=== PATIENT | female | born 1985 | race Caucasian/White ===

== ENCOUNTER 2021-03-21 18:38 | Emergency (ER) | payer SELFPAY ==
--- OUTSIDE RECORDS SUMMARY | 2021-03-21 18:40 | XMS REPORT | Continuity of Care Document ---
:1985 Author Organization [facility] t Address [address] [place] [address] Dr. Mcpherson. [address] [place] [address] Care Team Providers Name Role Phone Unavailable Unavailable Unavailable Payers Payer Name Policy Type Policy Number Effective Date Expiration Date S ource Problems This patient has no known problems. Allergies, Adverse Reactions, Alerts Allergy Allergy Status Severity Reaction(s) Onset Inactive Treating Comm ents Source Name Type Date Date Clinician No Known DA Active U KAYKAY Allerggloria 06-18 [facility] 00:00: e 00 [facility] Medications This patient has no known medications. Procedures This patient has no known procedures. Results This patient has no known results.
[2021-03-21] MEDS ORDERED: NA CHLORIDE 0.9% 2,000 ML ONE (19:19)
[2021-03-21 19:45] LABS: Absolute Lymphocytes (CBC) 1.3 K/uL (0.7-4.9); Basophils % 0.7 % (0-1.3); Hematocrit 38.1 % (36.0-45.0); Lymphocytes % 25.8 % (15.3-44.8); MPV 7.3 fL (7.6-11.3); RBC Red Blood Cell Count 4.17 M/uL (3.86-4.86)
[2021-03-21 19:49] LABS: Protime INR 0.92
[2021-03-21 20:00] LABS: ALT/SGPT 25 U/L (12-78); AST/SGOT 17 U/L (15-37); Alkaline Phosphatase 60 U/L (45-117); BUN Blood Urea Nitrogen 16 mg/dL (7-18); Bicarbonate 28 mmol/L (21-32); Bilirubin Direct 0.1 mg/dL (0-0.2); Bilirubin Total 0.6 mg/dL (0.2-1.0); Glucose Level 76 mg/dL (74-106); Lipase 119 U/L (73-393); Potassium 3.9 mmol/L (3.5-5.1); Protein, Total 7.4 g/dL (6.4-8.2); Sodium Level 140 mmol/L (136-145)
--- NOTE | 2021-03-21 20:10 | ER ---
Nurse's Notes [facility] Name: Filippo Brown Age: 35 yrs Sex: Female : 1985 Arrival Date: 03/21/2021 Time: 18:42 Bed 18 Private MD: Diagnosis: Abdominal tenderness;Heat exhaustion, unspecified Presentation: 03/21 18:47 Chief complaint: EMS states: Pt walked from [place] to [place] yesterday. Pt states vg1 dehydration and ABD pain; has hx of pancreatitis. Coronavirus screen: Client denies travel out of the [place] in the last 14 days. Ebola Screen: Patient negative for fever greater than or equal to 101.5 degrees Fahrenheit, and additional compatible Ebola Virus Disease symptoms. Initial Sepsis Screen: Does the patient meet any 2 criteria? No. Patient's initial sepsis screen is negative. Does the patient have a suspected source of infection? No. Patient's initial sepsis screen is negative. Risk Assessment: Do you want to hurt yourself or someone else? Patient reports no desire to harm self or others. Onset of symptoms was March 20, 2021. 18:47 Method Of Arrival: EMS: [facility] vg1 18:47 Acuity: THERON 3 vg1 Triage Assessment: 18:49 General: Appears in no apparent distress. uncomfortable, Behavior is calm, cooperative. vg1 Pain: Denies pain. 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 - Social history:: Smoking status: Patient denies any tobacco usage or history of. Screenin:47 Abuse screen: Denies threats or abuse. Denies injuries from another. Nutritional lp1 screening: No deficits noted. Tuberculosis screening: No symptoms or risk factors identified. Fall Risk None identified. Assessment: 19:15 General: Appears in no apparent distress. Behavior is calm, cooperative. Pain: Denies lp1 pain. Neuro: Level of Consciousness is awake, alert, obeys commands, Oriented to person, place, time, situation, Gait is steady, Speech is normal, Pupils are PERRLA, Intact Reports dizziness, after walking outside all day yesterday. Cardiovascular: Patient's skin is warm and dry. Respiratory: Airway is patent Respiratory effort is even, unlabored. GI: No signs and/or symptoms were reported involving the gastrointestinal system. : No signs and/or symptoms were reported regarding the genitourinary system. EENT: No signs and/or symptoms were reported regarding the EENT system. Derm: Skin is intact, Skin is dry, Skin is normal, appears slight redness to cheeks, patient reports from sun exposure. Musculoskeletal: No deficits noted. 20:20 Reassessment: Patient appears in no apparent distress at this time. Patient resting, lp1 eyes closed, respirations even, unlabored. Vital Signs: 18:47 BP 122 / 80; Pulse 95; Resp 18; Temp 98.8; Pulse Ox 100% ; Weight 58.97 kg; Pain 0/10; vg1 20:00 BP 102 / 67; Pulse 81; Resp 16; Pulse Ox 98% on R/A; lp1 21:00 BP 102 / 72; Pulse 86; Resp 16; Pulse Ox 99% on R/A; lp1 ED Course: 18:42 Patient arrived in ED. tr6 18:44 Satya Branham MD is Attending Physician. enedina 18:48 Triage completed. vg1 18:50 Arm band placed on. vg1 18:50 Patient has correct armband on for positive identification. Bed in low position. Call vg1 light in reach. Side rails up X 1. 19:32 Sherri Garcia RN is Primary Nurse. lp1 20:09 Shon Lyman MD is Referral Physician. enedina 20:57 No provider procedures requiring assistance completed. lp1 21:30 IV discontinued, No redness/swelling at site. Pressure dressing applied. lp1 Administered Medications: 19:20 Drug: NS 0.9% 1000 ml Route: IV; Rate: 1 bolus; Site: left forearm; lp1 20:20 Follow up: IV Status: Completed infusion; IV Intake: 1000ml lp1 20:20 Drug: NS 0.9% 1000 ml Route: IV; Rate: 1 bolus; Site: left forearm; lp1 21:29 Follow up: IV Status: Completed infusion; IV Intake: 1000ml lp1 Intake: 20:20 IV: 1000ml; Total: 1000ml. lp1 21:29 IV: 1000ml; Total: 2000ml. lp1 Outcome: 20:09 Discharge ordered by . enedina 21:30 Discharged to home ambulatory. lp1 21:30 Condition: good 21:30 Discharge instructions given to patient, Instructed on discharge instructions, follow up and referral plans. medication usage, Demonstrated understanding of instructions, follow-up care, medications, Prescriptions given X 2. 21:39 Patient left the ED. lp1 Signatures: Satya Branham MD MD cha Pena, Laura, RN RN lp1 Daniela Hutchinson, RN RN 1 Gloria Richards RN RN tr6
--- NOTE | 2021-03-21 20:10 | EDPHYS ---
Physician Documentation [facility] Name: Filippo Brown Age: 35 yrs Sex: Female : 1985 Arrival Date: 03/21/2021 Time: 18:42 Bed 18 Private MD: ED Physician Satya Branham HPI: 03/21 18:59 This 35 yrs old Female presents to ER via EMS with complaints of dehydrated [place]. 18:59 The patient presents with abdominal pain in the upper abdomen. Onset: The enedina symptoms/episode began/occurred just prior to arrival. The symptoms do not radiate. Associated signs and symptoms: none. 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 - Social history:: Smoking status: Patient denies any tobacco usage or history of. ROS: 19:06 Constitutional: Negative for fever, chills, and weight loss, Eyes: Negative for injury, enedina pain, redness, and discharge, ENT: Negative for injury, pain, and discharge, Neck: Negative for injury, pain, and swelling, Cardiovascular: Negative for chest pain, palpitations, and edema, Respiratory: Negative for shortness of breath, cough, wheezing, and pleuritic chest pain, Back: Negative for injury and pain, : Negative for injury, bleeding, discharge, and swelling, MS/Extremity: Negative for injury and deformity, Skin: Negative for injury, rash, and discoloration, Neuro: Negative for headache, weakness, numbness, tingling, and seizure, Psych: Negative for depression, anxiety, suicide ideation, homicidal ideation, and hallucinations, Allergy/Immunology: Negative for hives, rash, and allergies, Endocrine: Negative for neck swelling, polydipsia, polyuria, polyphagia, and marked weight changes, Hematologic/Lymphatic: Negative for swollen nodes, abnormal bleeding, and unusual bruising. 19:06 Abdomen/GI: Positive for abdominal pain, of the epigastric area, right upper quadrant and left upper quadrant. Exam: 19:06 Constitutional: This is a well developed, well nourished patient who is awake, alert, enedina and in no acute distress. Head/Face: Normocephalic, atraumatic. Eyes: Pupils equal round and reactive to light, extra-ocular motions intact. Lids and lashes normal. Conjunctiva and sclera are non-icteric and not injected. Cornea within normal limits. Periorbital areas with no swelling, redness, or edema. ENT: Nares patent. No nasal discharge, no septal abnormalities noted. Tympanic membranes are normal and external auditory canals are clear. Oropharynx with no redness, swelling, or masses, exudates, or evidence of obstruction, uvula midline. Mucous membranes moist. Neck: Trachea midline, no thyromegaly or masses palpated, and no cervical lymphadenopathy. Supple, full range of motion without nuchal rigidity, or vertebral point tenderness. No Meningismus. Chest/axilla: Normal chest wall appearance and motion. Nontender with no deformity. No lesions are appreciated. Cardiovascular: Regular rate and rhythm with a normal S1 and S2. No gallops, murmurs, or rubs. Normal PMI, no JVD. No pulse deficits. Respiratory: Lungs have equal breath sounds bilaterally, clear to auscultation and percussion. No rales, rhonchi or wheezes noted. No increased work of breathing, no retractions or nasal flaring. Abdomen/GI: Soft, non-tender, with normal bowel sounds. No distension or tympany. No guarding or rebound. No evidence of tenderness throughout. Back: No spinal tenderness. No costovertebral tenderness. Full range of motion. Skin: Warm, dry with normal turgor. Normal color with no rashes, no lesions, and no evidence of cellulitis. MS/ Extremity: Pulses equal, no cyanosis. Neurovascular intact. Full, normal range of motion. Neuro: Awake and alert, GCS 15, oriented to person, place, time, and situation. Cranial nerves II-XII grossly intact. Motor strength 5/5 in all extremities. Sensory grossly intact. Cerebellar exam normal. Normal gait. Psych: Awake, alert, with orientation to person, place and time. Behavior, mood, and affect are within normal limits. 19:06 Abdomen/GI: Inspection: abdomen appears normal, Bowel sounds: normal, active, all quadrants, Palpation: mild abdominal tenderness, in all quadrants, Liver: no appreciated palpable abnormalities, Hernia: not appreciated. Vital Signs: 18:47 BP 122 / 80; Pulse 95; Resp 18; Temp 98.8; Pulse Ox 100% ; Weight 58.97 kg; Pain 0/10; vg1 20:00 BP 102 / 67; Pulse 81; Resp 16; Pulse Ox 98% on R/A; lp1 21:00 BP 102 / 72; Pulse 86; Resp 16; Pulse Ox 99% on R/A; lp1 MDM: 18:44 Patient medically screened. [facility] 19:07 Differential diagnosis: cholecystitis, Cholelithiasis, diverticulitis, gastritis, enedina Hepatitis, Irritable bowel syndrome, Menorrhagia, myocardia ischemia or infarction, non-specific abd pain, Peptic Ulcer Disease, Pelvic Inflammatory Disease, urinary tract infection. Data reviewed: vital signs, nurses notes, lab test result(s), EKG. Data interpreted: end packer: rate is 95 beats/min, rhythm is regular, Pulse oximetry: on room air is 10 %. Test interpretation: by ED physician or midlevel provider: ECG. Counseling: I had a detailed discussion with the patient and/or guardian regarding: the historical points, exam findings, and any diagnostic results supporting the discharge/admit diagnosis, lab results, radiology results. 06 18:45 Order name: Acetaminophen [facility] 03/21 18:45 Order name: Basic Metabolic Panel [facility] 03/21 18:45 Order name: CBC with Diff [facility] 03/21 18:45 Order name: ETOH Level [facility] 03/21 18:45 Order name: Hepatic Function [facility] 03/21 18:45 Order name: PT-INR; Complete Time: 19:[address] [facility] 03/21 18:45 Order name: Ptt, Activated; Complete Time: 19:[address] [facility] 03/21 18:45 Order name: Salicylate; Complete Time: 19:[address] [facility] 03/21 18:45 Order name: Acetaminophen Level; Complete Time: 20:08 [facility] 03/21 18:45 Order name: Basic Metabolic Panel; Complete Time: 20:08 [facility] 03/21 18:45 Order name: CBC with Automated Diff; Complete Time: 19:54 [facility] 03/21 18:45 Order name: Alcohol Serum/Plasma; Complete Time: 19:54 [facility] 03/21 18:45 Order name: Liver (Hepatic) Function; Complete Time: 20:08 [facility] 03/21 18:45 Order name: EKG; Complete Time: 18:[address] [facility] 03/21 18:45 Order name: EKG - Nurse/Tech; Complete Time: 20:[address] [facility] 03/21 18:45 Order name: IV Saline Lock; Complete Time: 19:[address] [facility] 03/21 18:45 Order name: Labs collected and sent; Complete Time: 19:[address] [facility] 03/21 18:45 Order name: Suicide Screening ([place]); Complete Time: 20:[address] [facility] 03/21 18:58 Order name: Lipase [facility] 03/21 19:26 Order name: Lipase; Complete Time: 20:08 EDMS Administered Medications: 19:20 Drug: NS 0.9% 1000 ml Route: IV; Rate: 1 bolus; Site: left forearm; lp1 20:20 Follow up: IV Status: Completed infusion; IV Intake: 1000ml lp1 20:20 Drug: NS 0.9% 1000 ml Route: IV; Rate: 1 bolus; Site: left forearm; lp1 21:29 Follow up: IV Status: Completed infusion; IV Intake: 1000ml lp1 Disposition: 03/21/21 20:09 Discharged to Home. Impression: Abdominal tenderness, Heat exhaustion, unspecified. - Condition is Stable. - Discharge Instructions: Abdominal Pain, Adult, Nausea and Vomiting, Adult, Abdominal Pain, Adult, [id number]. - Prescriptions for Pepcid 20 mg Oral Tablet - take 1 tablet by ORAL route every 12 hours for 10 days; 20 tablet. Zofran 4 mg Oral Tablet - take 1 tablet by ORAL route every 12 hours As needed; 20 tablet. - Medication Reconciliation Form, Thank You Letter, Antibiotic Education, Prescription Opioid Use form. - Follow up: Private Physician; When: 2 - 3 days; Reason: Recheck today's complaints, Continuance of care, Re-evaluation by your physician. Follow up: Shon Lyman; When: 2 - 3 days; Reason: Recheck today's complaints, Re-evaluation by your physician. - Problem is new. - Symptoms have improved. Signatures: Dispatcher [employer] EDMS Satya Branham MD MD cha Pena, Laura, RN RN lp1 Daniela Hutchinson RN RN vg1 Corrections: (The following items were deleted from the chart) 19:26 18:59 Lipase ordered. EDRI EDMS 21:39 20:09 03/21/2021 20:09 Discharged to Home. Impression: Abdominal tenderness; Heat lp1 exhaustion, unspecified. Condition is Stable. Discharge Instructions: Abdominal Pain, Adult, Nausea and Vomiting, Adult, Abdominal Pain, Adult, [id number]. Prescriptions for Pepcid 20 mg Oral Tablet - take 1 tablet by ORAL route every 12 hours for 10 days; 20 tablet, Zofran 4 mg Oral Tablet - take 1 tablet by ORAL route every 12 hours As needed; 20 tablet. and Forms are Medication Reconciliation Form, Thank You Letter, Antibiotic Education, Prescription Opioid Use. Follow up: Private Physician; When: 2 - 3 days; Reason: Recheck today's complaints, Continuance of care, Re-evaluation by your physician. Follow up: Shon Lyman; When: 2 - 3 days; Reason: Recheck today's complaints, Re-evaluation by your physician. Problem is new. Symptoms have improved. enedina
[2021-03-21 22:14] VITALS: TEMP 98.8
[2021-03-21 22:15] VITALS: BP 102/67; O2SAT 98
== END 2021-03-21 21:39 | disposition home or self-care (01) ==
LOC: ER 18:38
DX: T67.5XXA Heat exhaustion, unspecified, initial encounter (principal)
CPT/HCPCS: 36415; 80048; 80076; 80320; 80329; 83690; 85025; 85610; 85730; 93005; 96360; 96361; 99283; J7030